=== PATIENT | male | born 1990 | race Two or more races ===

== ENCOUNTER 2016-07-24 14:57 | Emergency (ER) | payer OTHER ==
[~2016-07-24 14:57] MED LIST: BACTRIM 400-801 TA1 PO; EC-NAPROSYN500 MG PO; NO MEDICATIONS
[2016-07-24 15:10] LABS: INFLUENZA A NEG (NEG)
[2016-07-24 15:11] LABS: INFLUENZA B NEG (NEG)
== END 2016-07-24 15:32 | disposition home or self-care (01) ==
LOC: SED 14:57
PROVIDERS: Emergency Medicine
DX: J02.9 Acute pharyngitis, unspecified (principal); F17.200 Nicotine dependence, unspecified, uncomplicated; Z88.0 Allergy status to penicillin
CPT/HCPCS: 87651; 87804; 99283

== ENCOUNTER 2016-08-27 13:19 | Emergency (ER) | payer OTHER ==
--- NOTE | ~2016-08-27 | CR181 ---
[facility] A Service [facility] RADIOLOGY TEXT RESULTS PATIENT: LENORE SULLIVAN LOCATION: SED : 91 UNIT #: [id number] AGE: [address]: Obed Renteria MD SEX: M ORDER DR: [id number] [place] [id number] E MR#: [id number] Acc #: [id number] NAME: LENORE SULLIVAN. : 1990 SEX: M STUDY DATE/TIME: 08/27/2016 13:33 UNIT: SED ROOM: STUDY DESCRIPTION: CR Lumbar Spine 2 or 3 Views Attending Physician: Obed Renteria M.D. Ordering Physician: Obed Renteria M.D. Primary Care Physician: No Primary Care Physician MEDICAL IMAGING REPORT This report is preliminary unless electronic signature is present. EXAM Lumbar spine series, 08/27/2016, 1333 hours. CLINICAL HISTORY 26-year-old man complaining of chronic back pain for years worsening today. No radicular symptoms reported. COMPARISON None FINDINGS AP and lateral views demonstrate 5 [id number]-[id number] lumbar type vertebrae which are normally aligned. There is mild endplate spurring at the L1-L2 level. There is no disc height loss or fracture. IMPRESSION No fracture, subluxation, or significant disc height loss. There is mild endplate spurring at L1-L2. Dictated by... Destiny Chavez M.D. THIS IS AN ELECTRONICALLY VERIFIED REPORT Destiny Chavez M.D. at 08/27/2016 5:58 PM DAVIDM/johann TD: 08/27/2016 16:28 JOB #: [id number] MEDICAL IMAGING REPORT [facility] A Service [facility] RADIOLOGY TEXT RESULTS PATIENT: LENORE SULLIVAN LOCATION: SED : 91 UNIT #: [id number] AGE: [address]: Obed Renteria MD SEX: M ORDER DR: Page 1 of 1
== END 2016-08-27 14:05 | disposition home or self-care (01) ==
LOC: SED 13:19
DX: S29.012A Strain of muscle and tendon of back wall of thorax, initial encounter (principal); F17.200 Nicotine dependence, unspecified, uncomplicated; Z88.0 Allergy status to penicillin; X50.1XXA Overexertion from prolonged static or awkward postures, initial encounter; Y93.89 Activity, other specified; Y92.9 Unspecified place or not applicable
CPT/HCPCS: 72100; 99283

== ENCOUNTER 2016-09-01 11:24 | Emergency (ER) | payer OTHER ==
[2016-09-01] MEDS ORDERED: MOTRIN400 MG (11:34)
== END 2016-09-01 12:55 | disposition home or self-care (01) ==
LOC: SED 11:24
DX: S33.5XXA Sprain of ligaments of lumbar spine, initial encounter (principal); S16.1XXA Strain of muscle, fascia and tendon at neck level, initial encounter; F17.210 Nicotine dependence, cigarettes, uncomplicated; Z88.0 Allergy status to penicillin; V43.62XA Car passenger injured in collision with other type car in traffic accident, initial encounter
CPT/HCPCS: 96372; 99283; J1885